=== PATIENT | female | born 1985 | race Caucasian/White ===

== ENCOUNTER 2017-05-04 21:47 | Observation (INO) | payer OTHER ==
[~2017-05-04] VITALS: Ht 160 cm; Wt 69.0 kg
[2017-05-04] MEDS ORDERED: VITAFOL-OB+DHA1 EACH PO (23:52)
[2017-05-04] MEDS ORDERED: ZANTAC300 MG PO (23:52)
[2017-05-04] MEDS ORDERED: MELATONIN1 MG PO (23:53)
[2017-05-04] MEDS ORDERED: NORCO 5-325 TA1 EACH PO (23:54)
--- NOTE | 2017-05-06 08:33 | PR ---
[facility] [place] [facility] [address] [facility], [place] [address] Signed AP Progress Notes Datetime Report Generated by CPN: 05/06/2017 08:33 Chief Complaint: Bleeding EGA: 26.1 PHYSICAL EXAM: [id number] General: Normal HEENT: Normal Neurological: Normal Thyroid: Not Done Cardiovascular: Abnormal Respiratory: Normal Breast: Not Done Back: Abnormal Abdomen: Abnormal Geniturinry Exam: Not Done Extremities: Normal DTRs: Normal Pelvic: Adequate Physical Exam Comments: skin - rash / rosacea on back and upper arms. cv - tachycardic, mild murmur VITAL SIGNS: [id number] Vital Signs: Reviewed VS Notable Details: tachycardic EXAM: [id number] Dilatation: deferred Contraction Comments: none MEMBRANES: [id number] Pooling: Negative Membranes: Intact Fetus A: [id number] FHR Baseline: 140's Variability: Moderate 6-25bpm Accelerations: 15X15 Deceleration: None FHR Category: Category I Fetus A Comments: reassuring Gestation by US: 26.2 Presentation: Breech on 05/02/17 US Fetus B: [id number] *Electronically Signed* 05/06/17 NEYDA HUTCHINS MD PATIENT NAME: MINI WHATLEY PROGRESS NOTE DATE OF : [birth year] PHYSICIAN: NEYDA GERMAN MD RPT #: [id number] REPORT IS CONFIDENTIAL AND NOT TO BE RELEASED WITHOUT AUTHORIZATION [facility] [address] [facility], [place] [address] Signed PROGRESS NOTES: [id number] Impression: patient with complete previa Plan: patient ok for discharge home today. No further episodes of bleeding Signing Physician: Neyda German MD CC: *Electronically Signed* 05/06/17 0833 NEYDA GERMAN MD PATIENT NAME: MINI WHATLEY PROGRESS NOTE DATE OF : [birth year] PHYSICIAN: NEYDA GERMAN MD RPT #: [id number] REPORT IS CONFIDENTIAL AND NOT TO BE RELEASED WITHOUT AUTHORIZATION
== END 2017-05-06 09:20 | disposition home or self-care (01) ==
LOC: FBCO 21:47 → FBC 22:33
PROVIDERS: ADMIT Obstetrics & Gynecology
DX: O44.12 Complete placenta previa with hemorrhage, second trimester (principal); O30.002 Twin pregnancy, unspecified number of placenta and unspecified number of amniotic sacs, second trimester; O32.1XX1 Maternal care for breech presentation, fetus 1; O99.89 Other specified diseases and conditions complicating pregnancy, childbirth and the puerperium; R00.0 Tachycardia, unspecified; R01.1 Cardiac murmur, unspecified; O99.712 Diseases of the skin and subcutaneous tissue complicating pregnancy, second trimester; L71.9 Rosacea, unspecified; Z3A.26 26 weeks gestation of pregnancy; Z29.13 Encounter for prophylactic Rho(D) immune globulin
CPT/HCPCS: 59025; 85027; 90715; G0378; J0702; J2790; J7120

== ENCOUNTER 2020-04-02 06:55 | Emergency (ER) | payer OTHER ==
[~2020-04-02] VITALS: Ht 160 cm; Wt 68.9 kg
[~2020-04-02 06:55] MED LIST: MELATONIN1 MG PO; NORCO 5-325 TA1 EACH PO; VITAFOL-OB+DHA1 EACH PO; ZANTAC300 MG PO
[2020-04-02] MEDS ORDERED: NIFEDIPINE ER30 MG PO (07:09)
[2020-04-02] MEDS ORDERED: ONDANSETRON ODT8 MG PO (07:39)
== END 2020-04-02 07:45 | disposition home or self-care (01) ==
LOC: ED 06:55
DX: S92.351D Displaced fracture of fifth metatarsal bone, right foot, subsequent encounter for fracture with routine healing (principal); D64.9 Anemia, unspecified; Z79.899 Other long term (current) drug therapy; W10.8XXD Fall (on) (from) other stairs and steps, subsequent encounter
CPT/HCPCS: 99283

== ENCOUNTER 2022-08-08 07:58 | Day surgery (SDC) | payer BC ==
[2022-07-31 16:29] VITALS: BP 97/70
[~2022-08-08] VITALS: Ht 160 cm; Wt 66.8 kg
--- NOTE | ~2022-08-08 | OR ---
[facility] [address] [facility] [place], [place] [address] Draft DATE OF OPERATION: 08/08/2022 SURGEON: Drake Contreras DO PREOPERATIVE DIAGNOSIS: History of endometriosis. POSTOPERATIVE DIAGNOSES: 1. Stage IV endometriosis with obliteration of the cul-de-sac. 2. Patent fallopian tubes. PROCEDURES PERFORMED: 1. Diagnostic laparoscopy. 2. Chromopertubation. 3. Hysteroscopic dilation and curettage. ELECTRON GUN INSPECTOR: Irma Acosta D.O. ANESTHESIA: General. ESTIMATED BLOOD LOSS: 10 mL. FLUID DEFICIT: Hysteroscopy, 245 mL. SPECIMENS: Endometrial curettings. FINDINGS: Normal external genitalia with normal clitoris, urethral meatus, bilateral [place]'s and Bartholin's glands. Normal perineal body and anus. Normal vagina and cervix with excellent apical support. On hysteroscopy, normal cervix and endometrial cavity with bilateral tubal ostia identified. No endometrial polyps, fibroids, or other abnormalities. On laparoscopy, obliteration of the cul-de-sac with scarring of the colon to the posterior wall of the uterus, bilateral ovaries, and pelvic sidewall. Endometrial nodules located in the left portion of the obliterated cul-de-sac. Some superficial endometrial implants on the pelvic peritoneum bilaterally. Otherwise, PATIENT NAME: MINI BOWLES OPERATIVE REPORT DATE OF : 83 REPORT #: [id number] PHYSICIAN: DRAKE CONTRERAS (JULIANA) DO PCP: RUDDY FERNANDEZ PA-C REPORT IS CONFIDENTIAL AND NOT TO BE RELEASED WITHOUT AUTHORIZATION [facility] [address] [place], [place] [address] Draft normal-appearing uterus and ovaries without obvious endometrioma or other masses. Patent fallopian tubes bilaterally with bilateral spillage noted. COMPLICATIONS: None. INDICATIONS: Mrs. Bowles is a very pleasant 37-year-old female with a history of endometriosis diagnosed on laparoscopy several years ago in [facility]. The patient with some dysmenorrhea, dyspareunia, and decision was made to proceed with hysteroscopy, D and C, diagnostic laparoscopy and chromopertubation. Risks, benefits, and alternatives were discussed in detail with the patient. The patient understands and wishes to proceed with the procedure. DESCRIPTION OF PROCEDURE: The patient was taken to the operating room, where time-out was performed to confirm correct patient, correct procedure. General anesthesia was adequately established. The patient was prepped and draped in dorsal lithotomy position with feet in Yellofin stirrups. ICPs were on running and no preoperative antibiotics or heparin was indicated. Nuñez catheter was inserted. A weighted speculum was placed in the vagina and the anterior lip of the cervix was grasped with Allis clamp. The cervix was gently dilated using Hegar dilators to a #7. An operative hysteroscope was then placed in the cervical os and advanced under direct visualization into the uterine cavity. Normal cervical canal and uterine cavity was noted with bilateral tubal ostia identified. A MyoSure Lite device was selected and circumferential curettage was performed without difficulty. [place] uterine manipulator was then placed in the cervical os. The surgeon's gloves were changed. Attention was turned to the abdomen. The base of the umbilicus was infiltrated with 0.25% Marcaine with epinephrine and a small 5 mm stab incision was made with an #11 blade. A 5 mm trocar was then placed under direct visualization without complication. Pneumoperitoneum was established and survey of the abdomen and pelvis was performed. A 5 mm news assistant port was then placed through prior laparoscopic incision on the left without complication. Normal liver and gallbladder were appreciated. Normal peritoneum of the abdomen was appreciated. Attention was then turned to the pelvis. The colon was noted to be densely adherent to the posterior wall of the uterus with bilateral ovaries and pelvic sidewalls also scarred into one mass. The ovaries appeared normally bilaterally with no evidence of endometrioma. The uterus appears otherwise normal. The fallopian tubes were normal bilaterally and chromopertubation demonstrates bilateral spillage. There were some scattered superficial endometriosis implants were higher in the pelvis consistent with history and serial pictures of these were performed. Deep in the pelvis in the left portion of the obliterated cul-de-sac, there was a large nodule consistent with endometriosis. Decision was made to not attempt excision of endometriosis, giving limited resources at PATIENT NAME: MINI BOWLES OPERATIVE REPORT DATE OF : [birth year] REPORT #: [id number] PHYSICIAN: DRAKE CONTRERAS) PCP: RUDDY FERNANDEZ PA-C REPORT IS CONFIDENTIAL AND NOT TO BE RELEASED WITHOUT AUTHORIZATION [facility] [address] [place] [address] Draft a critical access hospital. The [facility] and treatment. Pneumoperitoneum was reduced and trocars removed. Trocar sites were repaired using 4-0 Monocryl in a subcuticular stitch with excellent hemostasis and cosmesis. Nuñez catheter was removed. The patient was then taken to the PACU in good and stable condition. Sponge, needle, and instrument counts correct x2 at the end of the procedure. Dr. Acosta was present and participated in all portions of the procedure. Drake Contreras DO JENRIQUE/TREVORL /[id number] Copies: ~ PATIENT NAME: MINI BOWLES OPERATIVE REPORT DATE OF : [birth year] REPORT #: [id number] PHYSICIAN: DRAKE CONTRERAS) PCP: RUDDY FERNANDEZ PA-C REPORT IS CONFIDENTIAL AND NOT TO BE RELEASED WITHOUT AUTHORIZATION
[~2022-08-08 07:58] MED LIST changes: +FLONASE ALLERG9.9 ML; +NIFEDIPINE ER30 MG PO; +ONDANSETRON ODT8 MG PO; +PROBIOTIC1 EAC2 PO
[2022-08-08] MEDS ORDERED: MELATONIN5 M2 PO (08:25)
[2022-08-08] MEDS ORDERED: LORAZEPAM0.5 MG PO (08:25)
[2022-08-08 08:28] VITALS: BP 107/68
--- NOTE | 2022-08-08 11:07 | NUR ---
08/08/22 1107 Sheets,Christiane 1059 PT ARRIVED TO PACU WITH ORAL AIRWAY IN PLACE AND 10L VIA MASK. PT NON AROUSABLE AND RESP EVEN AND UNLABORED. O2 10L VIA MASK IN PLACE. 1102 O2 DECREASED TO 6L.
[2022-08-08 11:45] VITALS: BP 106/64
--- NOTE | 2022-08-08 11:58 | NUR ---
1150: PATIENT BACK IN DAY SURGERY ROOM FROM PACU. RATES PAIN /. VS CHECKED. ABDOMEN WITH 2 LAP SITES WITH BANDAIDS THAT ARE CLEAN, DRY AND INTACT. PERIPAD IN PLACE WITH SMALL AMOUNT OF RED DRAINAGE. IV SITE WNL. SCDs ON. MOTHER AT BEDSIDE. TOLERATING SIPS OF WATER. GIVEN APPLE SAUCE TO EAT. DENIES NAUSEA. 1158: PATIENT TOLERATED APPLESAUCE. MEDICATED FOR PAIN WITH 1 TAB OF PERCOCET. MOTHER AT BEDSIDE. PATIENT RESTING.
[2022-08-08] MEDS ORDERED: IBUPROFEN800 MG PO (12:13)
[2022-08-08] MEDS ORDERED: HYDROCODON-ACE1 EA10 PO (12:14)
[2022-08-08 12:40] VITALS: BP 92/50
--- NOTE | 2022-08-08 13:09 | NUR ---
1230: DR. ELKINS IN TO SPEAK WITH PATIENT. 1240: VS CHECKED. PATIENT STATES "FEELS SLEEPY." DENIES NAUSEA. RATES PAIN 2/10. ABODMINAL LAP SITES WITH BANDAIDS CDI. PATIENT ASSISTED OOB AND TO BATHROOM WITH HELP OF MOTHER AND RN. GAIT STEADY. VOID WITHOUT DIFFICULTY. GAIT STEADY BACK TO ROOM. PATIENT STATES FEELS READY TO GO HOME. 1250: DISCHARGE INSTRUCTIONS GIVEN TO PATIENT AND MOTHER. IV DC'D WNL. TIP INTACT. DRESSING APPLIED. PATIENT GETTING DRESSED WITH HELP FROM MOTHER. 1300: PATIENT DISCHARGED TO HOME VIA WHEELCHAIR WITH MOTHER.
--- NOTE | 2022-08-09 15:01 | PATH ---
[facility] [address] [place], [place] [address] Signed SPECIMEN(S): A ENDOMETRIAL CURETTINGS SPECIMEN SOURCE: A. ENDOMETRIAL CURETTINGS CLINICAL HISTORY: Endometriosis. FINAL PATHOLOGIC DIAGNOSIS: Endometrial curettings: - Proliferative endometrium with focal polypoid features. - Negative for hyperplasia or atypia. JVR:vinny:C2NR MICROSCOPIC EXAMINATION: Histologic sections of all submitted blocks are examined by light microscopy. These findings, together with the gross examination, support the pathologic diagnosis. GROSS DESCRIPTION: The specimen, labeled and designated "Jelena, endometrial curettings," is received in formalin and consists of multiple fragments of red-shelley soft tissue (2.8 x 1.7 x 0.3 cm in aggregate). The specimen is submitted entirely in cassette (A1). VB (under the direct supervision of a pathologist) The Gross Description was prepared using a voice recognition system. The report was reviewed for accuracy; however, sound-alike word errors, addition and/or deletions may occur. If there is any question about this report, please contact Client Services. PERFORMING LABORATORY: The technical component was performed by [facility], [address] [place] [address] (CLIA# [id number]). Diagnostician: Hany Mcfarland MD Pathologist Electronically Signed 08/09/2022 Copies: PATIENT NAME: MINI WHATLEY PATHOLOGY DATE OF : 83 REPORT #: [id number] PHYSICIAN: TAYLOR GALLARDO PCP: RUDDY FERNANDEZ PA-C REPORT IS CONFIDENTIAL AND NOT TO BE RELEASED WITHOUT AUTHORIZATION [address], [place] [address] Signed ~ PATIENT NAME: MINI WHATLEY PATHOLOGY DATE OF : [birth year] REPORT #: [id number] PHYSICIAN: TAYLOR PATHOLOGY PCP: RUDDY FERNANDEZ PA-C REPORT IS CONFIDENTIAL AND NOT TO BE RELEASED WITHOUT AUTHORIZATION
== END 2022-08-08 13:00 | disposition home or self-care (01) ==
LOC: DS 07:58 → OPS 07:58
PROVIDERS: ATTEND Obstetrics & Gynecology
PROC: 0UDB8ZZ Extraction of Endometrium, Via Natural or Artificial Opening Endoscopic (ICD-10-PCS; principal; 2022-08-08 11:00)
PROC: 3E0P4GC Introduction of Other Therapeutic Substance into Female Reproductive, Percutaneous Endoscopic Approach (ICD-10-PCS; 2022-08-08 11:00)
DX: N80.322 Deep endometriosis of the posterior cul-de-sac (principal)
CPT/HCPCS: 00840; J0330; J1100; J1200; J1885; J2250; J2405; J2704; J3010; J7121; Q9968

== ENCOUNTER 2024-05-27 09:55 | Day surgery (SDC) | payer BC ==
[2024-05-25 11:52] VITALS: BP 106/75
[~2024-05-27] VITALS: Ht 160 cm; Wt 68.2 kg
[~2024-05-27 09:55] MED LIST changes: +AFRIN15 M1 NAS; +AMOX TR-K CLV1 EAC1 PO; +HYDROCODON-ACE1 EA10 PO; +IBLOOD GLUCOSE TEST STRIP 1 EA TEST VI PRN; +IBUPROFEN800 MG PO; +LACTATED RINGER'S 1,000 ML IV SCH; +LIDOCAINE HCL 1% 5 ML SDV INJ ONE; +LORAZEPAM0.5 MG PO; +MELATONIN5 M2 PO; +NAC600 MG PO; +PRILOSEC OTC20 MG PO; +SUDAFED 12 HOU120 MG PO; +TYLENOL325 MG PO; +VALIUM10 MG PO; +ZANTAC-360 (FAM20 MG PO; +ZYRTEC10 MG PO
[2024-05-27 10:07] VITALS: BP 104/61
[2024-05-27] MEDS ORDERED: ZANTAC-360 (FAM20 MG PO (10:15)
[2024-05-27] MEDS ORDERED: KETAMINE in NS 50 MG/5 ML SYR ONE (12:09)
[2024-05-27] MEDS ORDERED: propofoL 200 MG/20 ML VIAL ONE (12:09)
[2024-05-27] MEDS ORDERED: DEXAMETHASONE SOD PHOS 4 MG/ML VIAL ONE (12:10)
[2024-05-27] MEDS ORDERED: ACETAMINOPHEN 1,000 MG/100 ML VIAL ONE (12:10)
[2024-05-27] MEDS ORDERED: KETOROLAC TROMETHAMINE 30 MG/ML VIAL ONE (12:10)
[2024-05-27] MEDS ORDERED: ondansetron HCL 4 MG/2 ML VIAL ONE (12:10)
[2024-05-27] MEDS ORDERED: NALOXONE HCL 0.4 MG SYR IV PRN (12:30)
[2024-05-27] MEDS ORDERED: fentaNYL citrate 50 MCG/ML SDV IV PRN (12:30)
[2024-05-27] MEDS ORDERED: IBLOOD GLUCOSE TEST STRIP 1 EA TEST VI PRN (12:30)
[2024-05-27] MEDS ORDERED: droPERidol 5 MG/2 ML VIAL IV PRN (12:30)
[2024-05-27] MEDS ORDERED: ondansetron HCL 4 MG/2 ML VIAL IV PRN (12:30)
--- NOTE | 2024-05-27 13:20 | NUR ---
05/27/24 1320 Carmen Campo 1312-PATIENT ARRIVED TO PACU ON 6L MASK RR EVEN PATIENT REACTIVE TO VERBAL STIMULI VERY DROWSY SLIGHTLY OPENS EYES. SR HR 70'S IVF INFUSING. PATIENT DENIES PAIN OR NAUSEA. DR ELKINS AT BEDSIDE. 1318-PATIENT WILMARWSY DENIES PAIN OR NAUSEA REPORTS "TIRED" PLACED ON RA 100% RR EVEN. GIUSEPPE PAD PLACED NO DRAINAGE SEEN. PATIENT DOZES BACK TO SLEEP.
[2024-05-27 13:45] VITALS: BP 96/56
--- NOTE | 2024-05-27 13:55 | NUR ---
1345- PT ARRIVES TO DAY SURGERY ROOM 3 FROM PACU. BEDSIDE REPORT RECIEVED FROM BERNICE SHUKLA. SURGICAL SITE ASSESSED WITH NO DRAINAGE ON THE PERIPAD. LR INFUSING. PT IS AWAKE AND TALKING WITH RN. PT REPORTS 2/10 PAIN THAT IS TOLERABLE AND DENIES NAUSEA. VSS. BED IS LOCKED IN THE LOWEST POSITION AND CALL LIGHT IS IN REACH. DISCHARGE CRITIERIA TALKED ABOUT AND PT IS UNDERSTANDING. WATER AND APPLESAUCE PROVIDED PER PT REQUEST.
[2024-05-27 14:45] VITALS: BP 106/64
--- NOTE | 2024-05-27 15:04 | NUR ---
1445- PT IS SITTING UP AND TALKING WITH HER FRIEND AND ON HER PHONE. VSS. PT DENIES NAUSEA AND REPORTS 1/10 FOR PAIN. PT DENIES NEW BLEEDING.
--- NOTE | 2024-05-27 16:06 | NUR ---
1535- IV REMOVED. DC INFORMATION GONE OVER AND EDUCATION GIVEN. PT DENIES QUESTIONS AND CONCERNS. PT HAS ALL BELONGINGS. PT IS ABLE TO AMBULATE INDEPENDENTLY AROUND THE ROOM. PT DRESSED INDEPENDENTLY. GAIT IS STEADY AND EVEN. PT DC FROM DAY SURGERY VIA WHEELCHAIR TO FRIENDS CAR.
--- NOTE | 2024-05-31 10:41 | PATH ---
[facility] [address] [place], [place] [address] Signed SPECIMEN(S): A ENDOMETRIAL CURETTINGS SPECIMEN SOURCE: A. ENDOMETRIAL CURETTINGS CLINICAL HISTORY: Lesion of the endometrium FINAL PATHOLOGIC DIAGNOSIS: Endometrium, curettage: - Proliferative phase endometrium; no hyperplasia or neoplasia identified BRP MICROSCOPIC EXAMINATION: Histologic sections of all submitted blocks are examined by light microscopy. These findings, together with the gross examination, support the pathologic diagnosis. GROSS DESCRIPTION: The specimen, labeled and designated "John Bowles, endometrial curettings," is received in formalin and consists of multiple fragments of soft shelley tissue measuring 1.5 x 0.5 x 0.3 cm in aggregate. Entirely submitted in (A1). AB (under the direct supervision of a pathologist) The Gross Description was prepared using a voice recognition system. The report was reviewed for accuracy; however, sound-alike word errors, addition and/or deletions may occur. If there is any question about this report, please contact Client Services. ADDITIONAL NOTES: Immunohistochemical and/or in situ hybridization studies if performed in this case included appropriate positive controls that reacted as expected. This test was developed and its performance characteristics determined by [facility]. It has not been cleared or approved by the U.S. Food and Drug Administration. The FDA has determined that such clearance or approval is not necessary. This test is used for clinical purposes. It should not be regarded as investigational or for research. [facility] is certified under the Clinical Laboratory Improvement Amendments of 1988 (CLIA) as qualified to perform high complexity clinical laboratory testing. PATIENT NAME: MINI BOWLES PATHOLOGY DATE OF : 83 REPORT #: [id number] PHYSICIAN: TAYLOR GALLARDO PCP: RUDDY FERNANDEZ PA-C REPORT IS CONFIDENTIAL AND NOT TO BE RELEASED WITHOUT AUTHORIZATION [facility] [address] [place] [place] [address] Signed PERFORMING LABORATORY: Technical component was performed by [facility], [address] [place] [address] (CLIA# [id number]). Professional interpretation was performed by [facility] - [facility], [address] [place] [address] (CLIA#: [id number]). Diagnostician: Will Servin MD Pathologist Electronically Signed 05/31/2024 Copies: ~ PATIENT NAME: MINI BOWLES PATHOLOGY DATE OF : [birth year] REPORT #: [id number] PHYSICIAN: TAYLOR GALLARDO PCP: RUDDY FERNANDEZ PA-C REPORT IS CONFIDENTIAL AND NOT TO BE RELEASED WITHOUT AUTHORIZATION
--- NOTE | 2024-06-21 10:12 | OR ---
[facility] [address] [place], [place] [address] Signed DATE OF OPERATION: 05/27/2024 SURGEON: Drake Contreras DO PREOPERATIVE DIAGNOSES: 1. Lesion of the endometrium. 2. History of severe endometriosis. POSTOPERATIVE DIAGNOSES: 1. Asherman syndrome. 2. History of endometriosis. PROCEDURE PERFORMED: Hysteroscopy, dilation and curettage. ANESTHESIA: MAC. ESTIMATED BLOOD LOSS: 5 mL. FLUID DEFICIT: 120 mL. SPECIMENS: Endometrial curettings. COMPLICATIONS: None. FINDINGS: Normal external genitalia with normal clitoris, urethral meatus, bilateral [place]'s and Bartholin's glands, normal vagina and cervix. On hysteroscopy, normal cervical canal, lower uterine segment. The uterine cavity has a large synechiae in the midline with a central dimple in the synechiae. Bilateral tubal ostia are identified. Endometrium appears thin with no fibroids or polyps. INDICATIONS: Ms. Bowles is a very pleasant 38-year-old, G1, P1 female, who presents for hysteroscopy D and C. The patient recently had endometriosis surgery and she and her Electronically Signed By: DRAKE CONTRERAS DO (JD) 06/21/24 1012 PATIENT NAME: MINI BOWLES OPERATIVE REPORT DATE OF : [birth year] REPORT #: [id number] PHYSICIAN: DRAKE CONTRERAS DO (JD) PCP: RUDDY FERNANDEZ PA-C REPORT IS CONFIDENTIAL AND NOT TO BE RELEASED WITHOUT AUTHORIZATION [facility] [address] [place], [place] [address] Signed are considering fertility in the future. She has abnormal uterine bleeding. HSG was performed that demonstrated a central fundal defect in the endometrium/myometrium. In-office hysteroscopy was attempted, but was unable to be completed. The patient was consented for hysteroscopy, D and C in the OR. Risks, benefits, and alternatives were discussed in detail with the patient. The patient understands and wished to proceed with the procedure. DESCRIPTION OF PROCEDURE: The patient was taken to the OR, where a time-out was performed to confirm correct patient and correct procedure. MAC anesthesia was adequately established. The patient was prepped and draped in the dorsal lithotomy position with her feet in Yellofin stirrups. ICPs were on and running and no preoperative antibiotics were indicated. A weighted speculum was placed in the vagina. The anterior lip of the cervix was grasped with an Allis clamp. Cervix was gently dilated using Hegar dilators. An operative hysteroscope was then placed in cervical os and advanced under direct visualization into the uterine cavity. Normal endocervical canal and lower uterine segment was identified. Bilateral tubal ostia were able to be identified and a large central adhesion of the uterine cavity was identified with a central dimple extending 1-2 cm toward the fundus. Careful curettage was then performed of the endometrium using MyoSure Lite device. Decision was made to not move forward with hysteroscopic lysis of adhesions and to refer to specialist for further management given the patient's history, age, and preoperative desires. Hysteroscope was withdrawn and endometrial curettings were sent to Pathology for further evaluation. Fluid deficit 120 mL. Sponge, needle, and instrument counts was correct x2 at the end of the procedure. Of note, the patient denies any previous instrumentation of the uterus. Previous was complicated by placenta previa with chronic abruption that required delivery by low transverse section at 36 weeks in [place], [place]. Drake Contreras DO JENRIQUE/MODL /[id number] Electronically Signed By: DRAKE CONTRERAS (JD), DO 06/21/24 1012 PATIENT NAME: MINI BOWLES OPERATIVE REPORT DATE OF : [birth year] REPORT #: [id number] PHYSICIAN: DRAKE CONTRERAS DO (JD) PCP: RUDDY FERNANDEZ PA-C REPORT IS CONFIDENTIAL AND NOT TO BE RELEASED WITHOUT AUTHORIZATION [address] [address] Signed Copies: ~ Electronically Signed By: DRAKE CONTRERAS (JD), DO 06/21/24 1012 PATIENT NAME: MINI BOWLES OPERATIVE REPORT DATE OF : [birth year] REPORT #: [id number] PHYSICIAN: DRAKE CONTRERAS) PCP: RUDDY FERNANDEZ PA-C REPORT IS CONFIDENTIAL AND NOT TO BE RELEASED WITHOUT AUTHORIZATION
== END 2024-05-27 15:35 | disposition home or self-care (01) ==
LOC: DS 09:55
PROVIDERS: ATTEND Obstetrics & Gynecology
PROC: 0UDB8ZZ Extraction of Endometrium, Via Natural or Artificial Opening Endoscopic (ICD-10-PCS; principal; 2024-05-27 12:00)
DX: N85.6 Intrauterine synechiae (principal); N85.8 Other specified noninflammatory disorders of uterus; Z32.02 Encounter for pregnancy test, result negative; Z79.899 Other long term (current) drug therapy
CPT/HCPCS: 00940; J0131; J1100; J1885; J2405; J2704; J3490; J7121

== ENCOUNTER 2024-07-06 08:00 | Day surgery (SDC) | payer BC ==
[2024-06-28 10:13] VITALS: BP 123/70
[~2024-07-06] VITALS: Ht 160 cm; Wt 70.5 kg
[~2024-07-06 08:00] MED LIST changes: +CIPROFLOXACIN 0.3% 5 ML HOME.PACK ONE; +SEVOFLURANE 250 ML BTL INH ONE
[2024-07-06 08:24] VITALS: BP 104/62
[2024-07-06] MEDS ORDERED: LIDOCAINE HCL 2% 5 ML SDV ONE (09:54)
[2024-07-06] MEDS ORDERED: CIPROFLOXACIN 0.3% 5 ML HOME.PACK OTIC ONE (10:00)
[2024-07-06] MEDS ORDERED: ACETAMINOPHEN 1,000 MG/100 ML VIAL ONE (10:01)
[2024-07-06] MEDS ORDERED: ondansetron HCL 4 MG/2 ML VIAL ONE (10:09)
[2024-07-06] MEDS ORDERED: KETOROLAC TROMETHAMINE 30 MG/ML VIAL ONE (10:09)
[2024-07-06] MEDS ORDERED: DEXAMETHASONE SOD PHOS 4 MG/ML VIAL ONE (10:09)
--- NOTE | 2024-07-06 10:21 | NUR ---
07/06/24 1021 Jeni Waterman PATIENT WAKES SUDDENLY. SHE FOLLOWS INSTRUCTIONS TO OPEN HER MOUTH FOR ORAL AIRWAY TO BE REMOVED. DR INGRAM PRESENTS TO PATIENT'S BEDSIDE AND IS SPEAKING WITH PATIENT. PATIENT'S QUESTIONS ARE ANSWERED.
[2024-07-06] MEDS ORDERED: ondansetron HCL 4 MG/2 ML VIAL IV PRN (10:30)
[2024-07-06] MEDS ORDERED: NALOXONE HCL 0.4 MG SYR IV PRN (10:30)
[2024-07-06] MEDS ORDERED: fentaNYL citrate 50 MCG/ML SDV IV PRN (10:30)
[2024-07-06] MEDS ORDERED: IBLOOD GLUCOSE TEST STRIP 1 EA TEST VI PRN (10:30)
[2024-07-06 10:55] VITALS: BP 107/65
--- NOTE | 2024-07-06 11:16 | OR ---
[facility] [address] [place], [place] [address] Signed DATE OF OPERATION: 07/06/2024 SURGEON: Stefano Ingram MD PREOPERATIVE DIAGNOSIS: Bilateral eustachian tube dysfunction. POSTOPERATIVE DIAGNOSIS: Bilateral eustachian tube dysfunction. PROCEDURE: Bilateral myringotomy and ventilation tube insertion with T tubes. ANESTHESIA: General LMA; ROOF ASSEMBLER, Maribel. PREOPERATIVE HISTORY: Gloria is a 39-year-old lady with chronic eustachian tube problems, difficulty with flying. She had a Noel tubes placed by myself several years ago, which helped when they were functional. They have extruded and she is taken to the operating room for replacement of T-tubes, long-acting ventilation tubes. OPERATIVE PROCEDURE AND FINDINGS: After informed consent, the patient was taken to the operating room, placed in supine position where general LMA anesthesia was induced. The patient and procedure were verified. The patient was repositioned. Left ear was examined with the operating microscope. Very tortuous ear canal difficulty visualized in the anterior ear drum and anterior inferior radial myringotomy was made. Previous Noel tube had fallen to the middle ear space. This was removed. T-Tube was placed in the myringotomy site. Ofloxacin ophthalmic drops applied to the ear canal, cotton ball the meatus. Same procedure, same findings in the right ear. All the incision was in the inferior ear drum. Tube was placed, drops, cotton ball. The patient tolerated the procedure well, was awakened, extubated, transported to recovery room in good condition. No complications. BLOOD LOSS: Minimal. SPECIMEN: None. Electronically Signed By: STEFANO INGRAM MD 07/06/24 1116 PATIENT NAME: GLORIA WHATLEY OPERATIVE REPORT DATE OF : 83 REPORT #: [id number] PHYSICIAN: STEFANO INGRAM MD PCP: MARYSOL DE LUNA PAC REPORT IS CONFIDENTIAL AND NOT TO BE RELEASED WITHOUT AUTHORIZATION [address] [place], [place] [address] Signed DRAINS: None. Stefano Ingram MD GC/STEVE /[id number] Copies: ~ Electronically Signed By: STEFANO INGRAM MD 07/06/24 1116 PATIENT NAME: GLORIA WHATLEY OPERATIVE REPORT DATE OF : 83 REPORT #: [id number] PHYSICIAN: STEFANO INGRAM MD PCP: MARYSOL DE LUNA PAC REPORT IS CONFIDENTIAL AND NOT TO BE RELEASED WITHOUT AUTHORIZATION
--- NOTE | 2024-07-06 11:19 | NUR ---
1055: PATIENT BACK IN DAY SURGERY UNIT FROM PACU. DOES NOT RATE PAIN. STATES EARS FEEL "UNCOMFORTABLE." DENIES NEED FOR PAIN MEDICATION AT THIS TIME. VS CHECKED. COTTON IN BILATERAL EAR CLEAN, DRY AND INTACT. IV SITE WNL. SCDs ON. TOLERATING WATER. CALL LIGHT WITHIN REACH. 1118: PATIENT ASSISTED OOB AND TO BATHROOM. GAIT STEADY. VOID WITHOUT DIFFICULTY. GAIT STEADY BACK TO ROOM. PATIENT GETTING DRESSED.
[2024-07-06 11:40] VITALS: BP 108/56
--- NOTE | 2024-07-06 11:58 | NUR ---
1140: DISCHARGE INSTRUCTIONS GIVEN TO PATIENT. VS CHECKED. TOLERATED APPLESAUCE EARLIER. NO C/O NAUSEA. SCOPOLAMINE PATCH ON. 1145: IV DC'D WNL. TIP INTACT. DRESSING APPLIED. 1148: PATIENT DISCHARGED TO HOME VIA WHEELCHAIR WITH .
== END 2024-07-06 11:47 | disposition home or self-care (01) ==
LOC: OPS 08:00 → DS 08:00 → OPS 08:20
PROVIDERS: ATTEND Otolaryngology
PROC: 099500Z Drainage of Right Middle Ear with Drainage Device, Open Approach (ICD-10-PCS; 2024-07-06)
PROC: 099600Z Drainage of Left Middle Ear with Drainage Device, Open Approach (ICD-10-PCS; principal; 2024-07-06 10:00)
DX: H69.83 Other specified disorders of Eustachian tube, bilateral (principal)
CPT/HCPCS: 00126; 84703; J0131; J1100; J1885; J2003; J2405; J7121